=== PATIENT | female | born 1935 | race Caucasian/White ===

== ENCOUNTER 2017-07-11 16:20 | Inpatient (IN) | payer MEDICARE, OTHER ==
[~2017-07-11] VITALS: Ht 152.4 cm; Wt 73.9 kg
[2017-07-11 19:22] LABS: Basophils # (auto) 0 uL; Basophils % (auto) 0.4 % (0.0-2.0); Eosinophils # (auto) 0 uL; Hematocrit 47.8 % (36.0-46.0); Hemoglobin 15.5 g/dL (12.2-16.2); Lymphocytes # (auto) 1.9 uL; Lymphocytes % (auto) 15.5 % (10.0-50.0); Mean Corpuscular Hemoglobin 31.5 pg (28.0-32.0); Mean Corpuscular Hgb Conc. 32.4 g/dL (32.0-36.0); Mean Corpuscular Volume 97.1 fL (80.0-100.0); Monocytes # (auto) 0.9 uL; Monocytes % (auto) 7.2 % (0.0-12.0); Neutrophils # (auto) 9.3 uL; Neutrophils % (auto) 76.9 % (37.0-80.0); Platelet Count (auto) 386 10^3/uL (140-450); Red Blood Cells 4.93 10^6/uL (4.0-5.20); Red Cell Distribution Width 14.7 % (11.8-14.3); White Blood Cell 12.1 10^3/uL (4.4-10.8)
[2017-07-11 19:28] LABS: Albumin 3.2 g/dL (3.4-5.0); Calcium 9.3 mg/dL (8.5-10.1); Potassium 4.8 mmol/L (3.5-5.1)
[2017-07-11 19:31] LABS: BUN/Creatinine Ratio 34.5
[2017-07-11 19:34] LABS: Bilirubin, Total 0.5 mg/dL (0.2-1.0); Total Protein 7.6 g/dL (6.4-8.2)
[2017-07-11] MEDS ORDERED: TETANUS-DIPTH-ACEL PERTUSSIS 0.5ML SYRG IM ONE (19:45)
[2017-07-11] MEDS ORDERED: cefTRIAXone 1GM/10ml IVPUSH 10 ML IV ONE (19:45)
[2017-07-11 21:17] LABS: INR 1.53 (0.9-1.15); Partial Thromboplastin Time 35.4 sec (22.64-33.71); Prothrombin Time 16.8 sec (9.37-12.3)
[2017-07-11] MEDS ORDERED: HYDROcodone-ACET 10/325MG TAB PO ONE (21:45)
[2017-07-12] MEDS ORDERED: FUROSEMIDE 20 MG/2 ML VIAL IV ONE
[2017-07-12 01:04] LABS: Urine Bacteria MANY /hpf (None Seen); Urine Blood Negative /uL (Negative); Urine Hyaline Cast MANY /lpf (0 - 2); Urine Mucus FEW (None Seen); Urine Specific Gravity 1.017 (1.001-1.035); Urine WBC 3 /hpf (0 - 5)
[2017-07-12] MEDS ORDERED: [UNRECOGNIZED DRUG - CODE] PO (03:48)
[2017-07-12] MEDS ORDERED: COURX10 PO (03:48)
[2017-07-12] MEDS ORDERED: HYDR-531 PO (03:48)
[2017-07-12] MEDS ORDERED: GABA300C10 PO (03:48)
[2017-07-12] MEDS ORDERED: [UNRECOGNIZED DRUG - CODE] PO (03:48)
[2017-07-12] MEDS ORDERED: MET50T PO (03:48)
[2017-07-12] MEDS ORDERED: LOVA40TA72 PO (03:48)
[2017-07-12] MEDS ORDERED: FURO40TA4 PO (03:48)
[2017-07-12] MEDS ORDERED: TEMAZEPAM 15 MG CAP PO PRN (04:30)
[2017-07-12] MEDS ORDERED: ACETAMINOPHEN 325 MG TAB PO PRN (04:30)
[2017-07-12] MEDS: ONDANSETRON HCL 4 MG/2 ML VIAL IV PRN (06:12)
[2017-07-12] MEDS ORDERED: PHYTONADIONE (VIT K)10 MG/ML 1ML VIAL SUBCUT ONE (06:45)
[2017-07-12 07:19] LABS: Hematocrit 40.8 % (36.0-46.0); Hemoglobin 13.6 g/dL (12.2-16.2)
[2017-07-12 10:10] VITALS: BP 124/91
[2017-07-12] MEDS: METOPROLOL TARTRATE 50 MG TAB PO SCH ×2 (11:59→22:03)
[2017-07-12] MEDS: FUROSEMIDE 40 MG TAB PO SCH (12:00)
[2017-07-12] MEDS: FAMOTIDINE 20 MG TAB PO SCH ×2 (12:00→22:03)
[2017-07-12] MEDS: POTASSIUM CHL 10 Meq TABLET PO SCH (12:00)
[2017-07-12] MEDS: HYDROcodone-ACET 5/325MG TAB PO PRN ×3 (16:28→22:16)
[2017-07-12] MEDS ORDERED: WARFARIN SODIUM 5 MG TAB PO ONE (17:00)
[2017-07-12 17:46] VITALS: BP 148/54
[2017-07-12 20:00] VITALS: BP 124/66
[2017-07-12] MEDS ORDERED: PRAVASTATIN SODIUM 20 MG TAB PO SCH (22:00)
[2017-07-12] MEDS ORDERED: PATIENTS OWN MEDICATION (lovastatin 40 MG) PO SCH (22:00)
[2017-07-12] MEDS: cefTRIAXone 1GM/10ml IVPUSH 10 ML IV SCH (22:11)
[2017-07-12 22:30] VITALS: BP 124/66
[2017-07-13] MEDS: HYDROcodone-ACET 5/325MG TAB PO PRN ×2 (04:21→11:04)
[2017-07-13] MEDS: ONDANSETRON HCL 4 MG/2 ML VIAL IV PRN (04:24)
[2017-07-13 05:35] VITALS: BP 125/71
[2017-07-13 07:11] LABS: Basophils # (auto) 0 uL; Basophils % (auto) 0.2 % (0.0-2.0); Eosinophils # (auto) 0 uL; Hematocrit 37.2 % (36.0-46.0); Hemoglobin 12.3 g/dL (12.2-16.2); Lymphocytes # (auto) 2.8 uL; Lymphocytes % (auto) 23.3 % (10.0-50.0); Mean Corpuscular Hemoglobin 31.6 pg (28.0-32.0); Mean Corpuscular Volume 95.7 fL (80.0-100.0); Monocytes # (auto) 0.9 uL; Monocytes % (auto) 7.5 % (0.0-12.0); Neutrophils # (auto) 8.3 uL; Nucleated Red Blood Cells % 0.1 %; Platelet Count (auto) 309 10^3/uL (140-450); Red Blood Cells 3.88 10^6/uL (4.0-5.20); Red Cell Distribution Width 14.2 % (11.8-14.3); White Blood Cell 12.1 10^3/uL (4.4-10.8)
[2017-07-13 07:27] LABS: INR 1.03 (0.9-1.15); Partial Thromboplastin Time 28.7 sec (22.64-33.71); Prothrombin Time 11.2 sec (9.37-12.3)
[2017-07-13 07:28] LABS: Albumin 3.1 g/dL (3.4-5.0); BUN/Creatinine Ratio 38.1; Bilirubin, Total 0.3 mg/dL (0.2-1.0); Calcium 8.8 mg/dL (8.5-10.1); Potassium 3.9 mmol/L (3.5-5.1); Total Protein 6.8 g/dL (6.4-8.2)
[2017-07-13 09:10] VITALS: BP 107/62
[2017-07-13] MEDS: cefTRIAXone 1GM/10ml IVPUSH 10 ML IV SCH (10:48)
[2017-07-13] MEDS: METOPROLOL TARTRATE 50 MG TAB PO SCH (10:49)
[2017-07-13] MEDS: FUROSEMIDE 40 MG TAB PO SCH (10:49)
[2017-07-13] MEDS: POTASSIUM CHL 10 Meq TABLET PO SCH (10:49)
[2017-07-13] MEDS: FAMOTIDINE 20 MG TAB PO SCH (10:49)
[2017-07-13 12:45] VITALS: BP 93/64
[2017-07-13 13:05] VITALS: BP 93/64
[2017-07-13] MEDS ORDERED: WARFARIN SODIUM 5 MG TAB PO ONE (17:00)
== END 2017-07-13 15:14 | disposition home or self-care (01) | DRG 605 ==
LOC: ER 16:20 → OVERFLOW 16:21 → EAST 07-12 10:16
PROVIDERS: ADMIT Nurse Practitioner; ATTEND Nurse Practitioner
DX: S81.812A Laceration without foreign body, left lower leg, initial encounter (principal); D68.32 Hemorrhagic disorder due to extrinsic circulating anticoagulants; D68.9 Coagulation defect, unspecified; N39.0 Urinary tract infection, site not specified; X58.XXXA Exposure to other specified factors, initial encounter; I10 Essential (primary) hypertension; Z79.01 Long term (current) use of anticoagulants; Z90.710 Acquired absence of both cervix and uterus; Z95.2 Presence of prosthetic heart valve; Z23 Encounter for immunization; Y93.89 Activity, other specified; T45.515A Adverse effect of anticoagulants, initial encounter; Y92.098 Other place in other non-institutional residence as the place of occurrence of the external cause; Y99.8 Other external cause status
CPT/HCPCS: 36415; 71045; 73590; 80053; 81001; 83735; 83880; 84484; 85014; 85018; 85025; 85610; 85730; 90471; 90715; 93005; 94761; 96372; 96374; 96375; J2405; J3430